=== PATIENT | male | born 1940 | race Caucasian/White ===

== ENCOUNTER 2016-11-14 18:38 | Inpatient (IN) | payer MEDICARE, MEDICAID ==
[~2016-11-14] VITALS: Ht 172.7 cm; Wt 64.8 kg
[2016-11-14 18:47] VITALS: Ht 172.7 cm; Wt 64.8 kg
[2016-11-14] MEDS ORDERED: SOD CHLORIDE 0.9% 1,000 ML IV STA (18:56)
--- NOTE | 2016-11-14 19:34 | RADRPT ---
PROCEDURE: XR Chest AP portable CLINICAL INDICATION: Abdominal pain TECHNIQUE: An AP portable radiograph of the chest was submitted. COMPARISON: None. FINDINGS: Support Hardware: A tracheostomy tube is satisfactorily position. Cardiovascular: The heart is not enlarged of the aorta appears tortuous and the pulmonary vasculatur e is unremarkable. Lung Hedrick: And alveolar infiltrate is seen at the base of the right upper lobe and also within the lower lung zones bilaterally. Pleural Spaces: No pneumothorax or pleural effusion is identified. Osseous Structures: Moderate diffuse degenerative spine changes are noted and the osseous elements a re rarefied. Soft Tissues: The soft tissues appear unremarkable. IMPRESSION: 1. The tracheostomy tube is satisfactory position. 2. Aortic tortuosity. 3. Focal infiltrates involving the inferior right upper lobe and both lung bases. No effusion is e vident. Physician Betsy Date Time Electronically viewed and signed by Physician Betsy on 11/14/2016 19:34 /
[2016-11-14 19:46] LABS: ADD SCAN DIFF NO
[2016-11-14 19:48] LABS: BASOPHILS % 0.2 % (0.0-2.0); EOSINOPHILS # 0.1 10^3/ul (0.0-0.5); EOSINOPHILS % 0.5 % (0.0-7.0); HEMATOCRIT 31.6 % (42.0-52.0); HEMOGLOBIN 10.1 g/dl (14.0-18.0); LYMPHOCYTES % 6.5 % (15.0-51.0); MEAN CORPUSCULAR HEMOGLOBIN 28.5 pg (29.0-33.0); MONOCYTE # 0.6 10^3/ul (0.3-0.9); MONOCYTES % 4.1 % (0.0-11.0); NEUTROPHIL # 13.6 10^3/ul (1.6-7.5); NEUTROPHILS % 88.1 % (39.0-77.0); PLATELET COUNT 483 10^3/UL (140-415); RED BLOOD COUNT 3.55 10^6/ul (4.70-6.10); RED CELL DISTRIBUTION WIDTH 14.5 % (11.5-14.5); WHITE BLOOD COUNT 15.5 10^3/ul (4.8-10.8)
[2016-11-14] MEDS ORDERED: CARB1TAB3 GTB (19:58)
[2016-11-14] MEDS ORDERED: ASPI81TA3 GTB (19:58)
[2016-11-14 20:00] LABS: INR 1.23; PROTIME 15.6 Sec (12.2-14.2); PT RATIO 1.2
[2016-11-14] MEDS ORDERED: METO-448 GTB (20:00)
[2016-11-14] MEDS ORDERED: VANCOMYCIN 1 GM (PMX) 250 ML IVPB SCH (20:00)
[2016-11-14] MEDS ORDERED: SOD CHLORIDE 0.9% 2,000 ML IV ONE (20:00)
[2016-11-14] MEDS ORDERED: CEFEPIME 1GM/50 ML (PMX) 50 ML IVPB ONE (20:00)
[2016-11-14] MEDS ORDERED: ZINC220T GTB (20:02)
[2016-11-14 20:03] LABS: CHLORIDE 99 mmol/L (97-110); SODIUM 139 mmol/L (135-144)
[2016-11-14 20:04] LABS: POTASSIUM 3.8 mmol/L (3.5-5.1)
[2016-11-14] MEDS ORDERED: VIT500LI GTB (20:05)
[2016-11-14 20:06] LABS: ALANINE AMINOTRANSFERASE 38 IU/L (13-69); ALBUMIN/GLOBULIN RATIO 0.83; ALKALINE PHOSPHATASE 188 IU/L (42-121); ANION GAP 17 (8-16); ASPARTATE AMINO TRANSFERASE 42 IU/L (15-46); BILIRUBIN,INDIRECT 0.1 mg/dl (0-1.1); BILIRUBIN,TOTAL 0.1 mg/dl (0.2-1.3); BLOOD UREA NITROGEN 31 mg/dl (7-20); CALCIUM 8.8 mg/dl (8.4-10.2); CARBON DIOXIDE 27 mmol/L (21-31); CREATININE 0.35 mg/dl (0.61-1.24); GLUCOSE 107 mg/dl (70-220); TOTAL PROTEIN 6.6 g/dl (6.1-8.1)
--- NOTE | 2016-11-14 20:06 | ERA ---
ER Documentation Chief Complaint Date/Time DATE: 11/14/16 TIME: 19:53 Chief Complaint FEVER,HIGH WBC FROM [facility],TRACH TO AEROSOL HPI 75-year-old man brought in by EMS from skilled nursing for fever 1 day. Patient has chronic encephalopathy is nonverbal and read spontaneously through the tracheostomy. He has had no vomiting or diarrhea. HPI was supplemented by reviewing past medical history skilled nursing records, as well as speaking to EMS. ROS All systems reviewed and are negative except as per history of present illness. Medications Home Meds Reported Medications Acetaminophen* (Acetaminophen*) 325 Mg Tablet, 650 MG GTB Q4H Y for MILD PAIN LEVEL 1-3, #30 TAB 11/14/16 Vit C-Ascorbate Ca-Ascorb Sod (Vitamin C) 500 Mg/15 Ml Liquid, 500 MG GTB DAILY , ML 11/14/16 Zinc Sulfate* (Zinc Sulfate*) 220 Mg Tablet, 220 MG GTB DAILY, TAB 11/14/16 Metoprolol Tartrate* (Lopressor*) 25 Mg Tab, 25 MG GTB BID, #60 TAB HOLD IF SBP<110 OR HR<60 11/14/16 Aspirin* (Aspirin* Chew) 81 Mg Tab.chew, 81 MG GTB DAILY, TAB.CHEW 11/14/16 Carbidopa/Levodopa (Sinemet 25-250 mg Tablet) 1 Each Tablet, 1 EACH GTB TID, TAB 11/14/16 Allergies Allergies: Coded Allergies: No Known Allergy (Unverified , 11/14/16) PMhx/Soc Chronic encephalopathy, tracheostomy placement breathing spontaneously, hypertension, COPD, dysphagia with gastrostomy tube, parkinsonism, 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 Afebrile. HEENT: Dry mucous membranes, pink conjunctiva, no cervical spine tenderness or step-off deformity, tracheostomy in place NEURO: Eyes closed, unresponsive, bilateral upper and lower extremity contractures CARDIAC: Regular rate and rhythm, no murmurs rubs or gallops LUNGS: Poor breath sounds bilaterally, crackles at the bases ABDOMEN: Soft nontender, no guarding, no rigidity, no rebound, no psoas sign no obturator sign. Normoactive bowel sounds SKIN: Warm and dry to touch, no abrasions, contusions, or hematomas, no lacerations, no ecchymosis, no target lesions, and without ulcers EXTREMITIES: No clubbing cyanosis or edema, calves are bilaterally symmetrical, no Homans sign, no popliteal cord sign. Distal pulses equal and bilateral PSYCH: Unable to assess Result Diagram: 11/14/16192911/14/161931 Results 24 hrs Laboratory Tests Test 11/14/16 19:30 11/14/16 19:32 Basophils # 0.010^3/ul Basophils % 0.2% Eosinophils # 0.110^3/ul Eosinophils % 0.5% Hematocrit 31.6% Hemoglobin 10.1g/dl Lactic Acid Level 1.6mmol/L Lymphocytes # 1.010^3/ul Lymphocytes % 6.5% Mean Corpuscular Hemoglobin 28.5pg Mean Corpuscular Hemoglobin Concent 32.0g/dl Mean Corpuscular Volume 89.0fl Mean Platelet Volume 10.0fl Monocytes # 0.610^3/ul Monocytes % 4.1% Neutrophils # 13.610^3/ul Neutrophils % 88.1% Nucleated Red Blood Cells # 0.010^3/ul Nucleated Red Blood Cells % 0.0/100WBC Platelet Count 64089^3/UL Red Blood Count 3.5510^6/ul Red Cell Distribution Width 14.5% White Blood Count 15.510^3/ul Alanine Aminotransferase (ALT/SGPT) 38IU/L Albumin 3.0g/dl Albumin/Globulin Ratio 0.83 Alkaline Phosphatase 188IU/L Anion Gap 17 Aspartate Amino Transf (AST/SGOT) 42IU/L Blood Urea Nitrogen 31mg/dl Calcium Level 8.8mg/dl Carbon Dioxide Level 27mmol/L Chloride Level 99mmol/L Creatinine 0.35mg/dl Direct Bilirubin 0.00mg/dl Globulin 3.60g/dl Glucose Level 107mg/dl INR International Normalized Ratio 1.23 Indirect Bilirubin 0.1mg/dl Lipase 94U/L Potassium Level 3.8mmol/L Prothrombin Time 15.6Sec Prothrombin Time Ratio 1.2 Sodium Level 139mmol/L Total Bilirubin 0.1mg/dl Total Protein 6.6g/dl Troponin I < 0.010ng/ml Current Medications Medications (Trade) Dose Ordered Sig/Codi Route PRN Reason Start Time Stop Time Status Last Admin Dose Admin Sodium Chloride 1,000 ml @ 1,000 mls/hr Q1H STAT IV 11/14/16 18:56 11/14/16 19:55 DC 11/14/16 20:21 Cefepime HCl 50 ml @ 100 mls/hr ONCE ONCE IVPB 11/14/16 20:00 11/14/16 20:29 11/14/16 20:21 Vancomycin HCl 250 ml @ 125 mls/hr ONCE IVPB 11/14/16 20:00 11/14/16 21:59 Sodium Chloride (NS) 2,000 ml @ 2,000 mls/hr Q1H ONCE IV 11/14/16 20:00 11/14/16 20:59 Procedures/MDM IV line was established patient was placed on playground monitor rhythm strip revealed a sinus rhythm at about 80 bpm with upright P and T waves. Blood and urine cultures have been ordered results are pending I will follow-up. I administered about 3 L normal saline intravenously for suspected sepsis and dehydration. One view chest x-ray performed, read by me revealed bilateral lower pulmonary infiltrates and a right upper lobe mass versus infiltrate. Tracheostomy is in place. No pneumothorax or end of the diaphragm. I administered cefepime 1 g IV and vancomycin 1 g IV for sepsis and bilateral healthcare associated pneumonia. CBC revealed leukocytosis at 16, electrolytes revealed dehydration with an increased BUN/creatinine ratio of 31/0.4, liver function tests are normal, troponin was negative. Urinalysis has also been ordered results are pending I will follow-up. Patient's infectious symptoms have not stabilized and the patient is at risk of rapid decompensation. The patient will be admitted for careful hydration, antibiotic therapy, and infectious source control. Severe Sepsis Assessment: Infectious Source: Bilateral pneumonia Severe Sepsis Managment: Blood Cultures X 2 before broad spectrum antibiotics initiated within 3 hours of recognition. 30 ml/kg NS bolus Completed Initial Lactate: 1.6 Repeat Lactate pending Critical Care: Time: 37 minutes Treatments/Evaluations: Emergent fluid management, while maintaining close respiratory support. Immediate broad spectrum antibiotic therapy. Simultaneous assessment for possible sources in order to direct therapy. Consideration for invasive and chemical support to prevent respiratory or cardiac collapse. Septic Shock Assessment (1 hour post 30 ml/kg fluid bolus): Hypotension (SBP < 90 or 40 mmHg drop, MAP < 65): No Lactic acid > 4.0 No Perfusion Reassessment for Septic Shock: Temp afebrile, Pulse 86, RR 18, BP 140/80 Heart Exam: Regular rate and rhythm Lung Exam: Bibasilar Capillary Refill: Less than 2 second Peripheral Pulses: Radially present Skin: [place] and warm Hypotensive Treatment (not required for isolated lactic acid elevation): Comfort Care: No Central LIne: Not indicated Vasopressor started: None I considered further perfusion assessment with CVP measurement, SCVO2, bedside ultrasound volume assessment, passive leg raise, trial of further fluid bolus. And preceded with IV hydration and broad-spectrum IV antibiotic Accepting Care Team: Current data and ongoing care discussed. Time: Time of admission Primary Provider: Hospital Consulting: Infectious disease and pulmonology Outstanding Data: none Departure Diagnosis: Primary Impression: Healthcare-associated pneumonia Additional Impressions: Sepsis Qualified Code: A41.9 - Sepsis, due to unspecified organism Dehydration Encephalopathy Condition: Serious WILLOW BECKER MD Nov 14, 2016 20:05
[2016-11-14] MEDS ORDERED: ACET325T45 GTB (20:07)
[2016-11-14 20:23] LABS: TROPONIN-I < 0.010 ng/ml (0.00-0.12)
[2016-11-14 21:52] LABS: ADD UMIC YES; URINE BILIRUBIN (Dip) NEGATIVE (NEGATIVE); URINE BLOOD (Dip) 3+ (NEGATIVE); URINE COLOR YELLOW (YELLOW); URINE GLUCOSE (Dip) NEGATIVE (NEGATIVE); URINE KETONES (Dip) NEGATIVE (NEGATIVE); URINE LEUKOCYTE ESTERASE (Dip) 1+ (NEGATIVE); URINE NITRITE (Dip) NEGATIVE (NEGATIVE); URINE TOTAL PROTEIN (Dip) 1+ (NEGATIVE); URINE UROBILINOGEN (Dip) 1.0 E.U./dL (0.1-1.0)
[2016-11-14 22:04] LABS: URINE RBCS >50 /HPF (0)
[2016-11-14 22:05] LABS: BACTERIA,URINE FEW; SQUAMOUS EPITHELIAL CELL,UR FEW
[2016-11-15] VITALS (11 sets, daily range): BP systolic 113–121; BP diastolic 60–65; PULSE 86–97; RESP 18–19; TEMP 98.4
[2016-11-15] MEDS ORDERED: ALBUTEROL/IPRATROPIUM (NEB) 3 ML AMP HHN PRN (05:00)
[2016-11-15] MEDS ORDERED: ONDANSETRON 4 MG INJ IV PRN (05:00)
[2016-11-15] MEDS ORDERED: VANCOMYCIN IV PER PHARMACY XX SCH (05:00)
[2016-11-15 07:00] LABS: ADD SCAN DIFF NO
[2016-11-15 07:08] LABS: BASOPHILS % 0.2 % (0.0-2.0); EOSINOPHILS # 0.1 10^3/ul (0.0-0.5); EOSINOPHILS % 0.5 % (0.0-7.0); HEMATOCRIT 26.6 % (42.0-52.0); HEMOGLOBIN 8.5 g/dl (14.0-18.0); LYMPHOCYTES # 0.9 10^3/ul (0.8-2.9); LYMPHOCYTES % 7.9 % (15.0-51.0); MEAN CORPUSCULAR HEMOGLOBIN 28.1 pg (29.0-33.0); MEAN CORPUSCULAR VOLUME 88.1 fl (82.0-101.0); MEAN PLATELET VOLUME 10.4 fl (7.4-10.4); MONOCYTE # 0.7 10^3/ul (0.3-0.9); NEUTROPHILS % 84.7 % (39.0-77.0); PLATELET COUNT 437 10^3/UL (140-415); RED BLOOD COUNT 3.02 10^6/ul (4.70-6.10); RED CELL DISTRIBUTION WIDTH 14.4 % (11.5-14.5); WHITE BLOOD COUNT 11.8 10^3/ul (4.8-10.8)
[2016-11-15 07:16] LABS: ALBUMIN 2.5 g/dl (3.3-4.9); POTASSIUM 3.5 mmol/L (3.5-5.1)
[2016-11-15 07:18] LABS: ALBUMIN/GLOBULIN RATIO 0.6
[2016-11-15 07:33] LABS: BILIRUBIN,INDIRECT 0.1 mg/dl (0-1.1); BILIRUBIN,TOTAL 0.1 mg/dl (0.2-1.3); CALCIUM 8.1 mg/dl (8.4-10.2); CREATININE 0.39 mg/dl (0.61-1.24); TOTAL PROTEIN 6.6 g/dl (6.1-8.1)
--- NOTE | 2016-11-15 08:33 | HP ---
DATE OF ADMISSION: 11/14/2016 TIME SEEN: 2300 CHIEF COMPLAINT: Sent from [facility] for leukocytosis and fever. HISTORY OF PRESENT ILLNESS: The patient is a 75-year-old male with a history of chronic encephalopat hy who is nonverbal. Status post trach, history of Parkinson disease, cardiac arrest, dyslipidemia, COPD, dysphagia status post G-tube, diabetes, multiple pressure ulcers and history of sepsis who [facility] leuk[facility] and fever. The patient was nonve rbal and has chronic encephalopathy, and as such, information is gathered from chart review and from the ER physician. This is the patient's first visit to this hospital. When he presented to the ER, blood pressure was 111/60, heart rate 70, respiratory rate 18, temperat ure 97.8, oxygen saturation 98%. Laboratory value shows a WBC of 15.5, hemoglobin 10.1, platelet co unt 43, BUN 31 with a normal creatinine of 0.35, alkaline phosphatase 188, albumin 3. Otherwise, th e rest of his CBC and CMP are within acceptable range. Chest x-ray shows no focal infiltrate involv ing the inferior right upper lobe and both lung bases. The patient was given cefepime and vancomyci n, as well as IV fluid while he was in the ER and currently admitted to telemetry unit. REVIEW OF SYSTEMS: Unable to fully assess. PAST MEDICAL HISTORY: As per HPI. PAST SURGICAL HISTORY: G-tube placement and tracheostomy. SOCIAL HISTORY: Unknown. ALLERGIES: NO KNOWN DRUG ALLERGIES. MEDICATION: At the SNF, he was on Lopressor, Tylenol, aspirin, Sinemet, zinc sulfate and vitamin C. PHYSICAL EXAMINATION: VITAL SIGNS: Blood pressure 100/67, heart rate 80, respiratory rate 18, temperature 97.8, oxygen sa turation 97% on 3 liters C collar. GENERAL: The patient lying in bed in no acute distress, not oriented. HEENT: No obvious head deformity. Pupils are reactive to light. NECK: Tracheostomy tube in place. CARDIOVASCULAR: Tachycardic with regular rhythm. LUNGS: Decreased breath sounds at the bases anteriorly. ABDOMEN: Soft. There is a G-tube in place. Nondistended. No grimaces noted on palpation. EXTREMITIES: No edema. LABORATORY: Pertinent positives as mentioned in the HPI. IMAGING: Chest x-ray results as mentioned in the HPI. IMPRESSION: 1. Sepsis as evidenced by leukocytosis and tachycardia, secondary to pneumonia. 2. Healthcare-associated pneumonia. 3. Chronic trach dependent respiratory failure. 4. Chronic encephalopathy. 5. History of Parkinson disease. 6. History of cardiac arrest. 7. History of chronic obstructive pulmonary disease. 8. History of multiple pressure ulcers. PLAN: He will be placed on antibiotic. We will follow up on blood culture and urine culture, and w ill send tracheal aspirate for Gram stain and culture as well. We are going to continue trach suppo rt. He will receive breathing treatments as needed. We will place a pulmonary consult. Will varghese nue tube feeding through his G-tube 7. We will continue his home medication with adjustment as needed. Further workup will be per clinical course. Dictated By: ELIZABETH ESPINAL/KINGSLEY Conf#: [id number] DID#: [id number]
[2016-11-15] MEDS: CEFEPIME 1GM/50 ML (PMX) 50 ML IVPB SCH ×2 (08:45→21:35)
[2016-11-15] MEDS: HEPARIN 5,000 UNIT/0.5 ML SYG SC SCH ×2 (08:48→21:00)
[2016-11-15] MEDS: VANCOMYCIN 750 MG in SOD CHLORIDE 0.9% 150 ML IVPB SCH ×2 (11:09→23:00)
[2016-11-15] MEDS ORDERED: VANCOMYCIN 1.5 GM in SOD CHLORIDE 0.9% 250 ML IVPB SCH (12:00)
--- NOTE | 2016-11-15 13:07 | CONS ---
Date/Time of Note Date/Time of Note DATE: 11/15/16 TIME: 13:03 Assessment/Plan Assessment/Plan Additional Assessment/Plan Chest x-ray was reviewed from yesterday which is showing patchy infiltrates in the left lower lobe as well as right middle and lower lobes. Assessment recommendations; 1. Patient admitted with sepsis and pneumonia due to bilateral pneumonia. Possibly aspiration. 2. Chronic respiratory failure, patient maintained on T piece. 3. History of severe Parkinson's disease. 4. History of severe anoxic encephalopathy. Continue current treatment. I did have a very detailed discussion the patient' s sister at bedside and answered all her questions. The patient is a DNR. Consultation Date/Type/Reason Admit Date/Time Nov 14, 2016 at 20:09 Date of Consultation: Nov 15, 2016 Type of Consultation: Pulmonary Reason for Consultation Pulmonary consultation obtained for evaluation of respiratory failure and management of pneumonia. History of present illness; patient is 75-year-old white male who was [facility] complaints of hypoxemia and hypotension. Upon evaluation chest x-ray was done which is showing bilateral patchy pneumonia. Patient has been started on antibiotic coverage. Patient does have a history of severe anoxic enthesopathy and is unable to give any history whatsoever. History was obtained from medical records as well as from the patient's sister who is present in the room. According to her the patient had a choking episode sometime back in July of last year and prior to that he was doing well after that the patient has had a very stormy course with severe anoxic encephalopathy. He is status post tracheostomy and PEG tube placement. Past medical history; 1. History of chronic respiratory failure patient maintained on T piece. 2. History of severe Parkinson's disease. 3. History of cardiac arrest in July of last year from a choking episode while the patient was eating steak at home 4. Status post tracheostomy and G-tube placement. Medications; were reviewed. Allergies; none. Social history; patient is most of any smoking, alcohol or drug abuse. Family history; patient is single he only has 2 sisters. No children. Occupational history; patient was a salesman. Review of systems; currently unable to be obtained. General examination; elderly male, appears quite emaciated. On T piece via tracheostomy. Does not appear to be in any distress. Social History Smoking Status: Unknown if ever smoked Exam/Review of Systems Vital Signs Vitals Vital Signs Date Time Temp Pulse Resp B/P Pulse Ox O2 Delivery O2 Flow Rate FiO2 11/15/16 12:18 89 11/15/16 11:20 20 98 Aerosol 5.0 28 11/15/16 11:04 97.3 121/60 Intake and Output 11/14/16 11/14/16 11/15/16 15:00 23:00 07:00 Intake Total 1000 ml Balance 1000 ml Exam HEENT examination; no JVD. Tracheostomy in place with clean insertion site. Patient has fair dentition. Patient enjoys difficult to obtain due to stiffness. Pupils are small bilaterally. No neck masses. Neck is difficult to flex. Chest examination; diminished but clear breath sounds bilaterally. S1-S2 audible, no murmurs. Regular rhythm. Abdomen examination; soft, scaphoid, G-tube in place. Bowel sounds audible. No organomegaly. Extremity examination; no peripheral edema. Patient has severe contractures involving all 4 extremities. US CUSTOMS AND BORDER OFFICER examination; patient remains completely unresponsive. Results Result Diagram: 11/15/16 0600 11/15/16 0600 Results 24 hrs Laboratory Tests Test 11/14/16 19:30 11/14/16 19:32 11/14/16 20:50 11/14/16 21:34 Basophils # 0.0 Basophils % 0.2 Eosinophils # 0.1 Eosinophils % 0.5 Hematocrit 31.6 L Hemoglobin 10.1 L Lactic Acid Level 1.6 1.6 Lymphocytes # 1.0 Lymphocytes % 6.5 L Mean Corpuscular Hemoglobin 28.5 L Mean Corpuscular Hemoglobin Concent 32.0 Mean Corpuscular Volume 89.0 Mean Platelet Volume 10.0 Monocytes # 0.6 Monocytes % 4.1 Neutrophils # 13.6 H Neutrophils % 88.1 H Nucleated Red Blood Cells # 0.0 Nucleated Red Blood Cells % 0.0 Platelet Count 483 H Red Blood Count 3.55 L Red Cell Distribution Width 14.5 White Blood Count 15.5 H Alanine Aminotransferase (ALT/SGPT) 38 Albumin 3.0 L Albumin/Globulin Ratio 0.83 Alkaline Phosphatase 188 H Anion Gap 17 H Aspartate Amino Transf (AST/SGOT) 42 Blood Urea Nitrogen 31 H Calcium Level 8.8 Carbon Dioxide Level 27 Chloride Level 99 Creatinine 0.35 L Direct Bilirubin 0.00 Globulin 3.60 H Glucose Level 107 INR International Normalized Ratio 1.23 Indirect Bilirubin 0.1 Lipase 94 Potassium Level 3.8 Prothrombin Time 15.6 H Prothrombin Time Ratio 1.2 Sodium Level 139 Total Bilirubin 0.1 L Total Protein 6.6 Troponin I < 0.010 Urine Bacteria FEW Urine Bilirubin NEGATIVE Urine Clarity SL HAZY Urine Color YELLOW Urine Glucose NEGATIVE Urine Hemoglobin 3+ H Urine Ketones NEGATIVE Urine Leukocyte Esterase 1+ H Urine Microscopic RBC >50 Urine Microscopic WBC 5-10 Urine Nitrite NEGATIVE Urine Specific [place] 1.015 Urine Squamous Epithelial Cells FEW Urine Total Protein 1+ H Urine Urobilinogen 1.0 E.U./dL Urine pH 7.0 Test 11/14/16 23:31 11/15/16 06:00 Lactic Acid Level 1.4 Alanine Aminotransferase (ALT/SGPT) 75 H Albumin 2.5 L Albumin/Globulin Ratio 0.60 Alkaline Phosphatase 156 H Anion Gap 16 Aspartate Amino Transf (AST/SGOT) 34 Basophils # 0.0 Basophils % 0.2 Blood Urea Nitrogen 24 H Calcium Level 8.1 L Carbon Dioxide Level 24 Chloride Level 105 Creatinine 0.39 L Direct Bilirubin 0.00 Eosinophils # 0.1 Eosinophils % 0.5 Globulin 4.10 H Glucose Level 85 Hematocrit 26.6 L Hemoglobin 8.5 L Indirect Bilirubin 0.1 Lymphocytes # 0.9 Lymphocytes % 7.9 L Mean Corpuscular Hemoglobin 28.1 L Mean Corpuscular Hemoglobin Concent 32.0 Mean Corpuscular Volume 88.1 Mean Platelet Volume 10.4 Monocytes # 0.7 Monocytes % 6.0 Neutrophils # 10.0 H Neutrophils % 84.7 H Nucleated Red Blood Cells # 0.0 Nucleated Red Blood Cells % 0.0 Platelet Count 437 H Potassium Level 3.5 Red Blood Count 3.02 L Red Cell Distribution Width 14.4 Sodium Level 141 Total Bilirubin 0.1 L Total Protein 6.6 White Blood Count 11.8 #H Medications Medications Current Medications Cefepime HCl (Maxipime 1gm/50 ml (Pmx)) 50 ml @ 100 mls/hr Q12 IVPB Last administered on 11/15/16t 08:45; Admin Dose 100 MLS/HR; Start 11/15/16 at 09:00 Ondansetron HCl (Zofran Inj) 4 mg Q6H PRN IV NAUSEA AND/OR VOMITING; Start at 05:00 Heparin Sodium (Porcine) 5000 unit 5,000 unit BID SC Last administered on 08:48; Admin Dose 5,000 UNIT; Start 11/15/16 at 09:00 Vancomycin HCl/ Sodium Chloride (Vancocin/NS) 150 ml @ 75 mls/hr Q12H IVPB Last administered on 11/15/16 11:09; Admin Dose 75 MLS/HR; Start 11/15/16 at 11 :00 DANIEL WOOD Nov 15, 2016 13:07
--- NOTE | 2016-11-15 16:39 | PN ---
Date/Time of Note Date/Time of Note DATE: 11/15/16 TIME: 16:34 Assessment/Plan VTE Prophylaxis VTE Prophylaxis Intervention: heparin (radiate yesterday rectal) Lines/Catheters IV Catheter Type (from Rust): Peripheral IV Urinary Cath still in place: Yes Assessment/Plan Chief Complaint/Hosp Course Assessment and plan 1. Sepsis secondary to pneumonia. Continue antibiotics. Continue with bronchodilators as needed. 2. Chronic respiratory failure. Patient trach dependent. Automotive Electrician Helper consulted. Continue recommendations 3. History of chronic encephalopathy. Continue aspiration precautions 4. History of Parkinson's disease.continue on antiparkinsonian medications 5. History of pressure ulcers. We'll get wound care consultation 6. History of cardiac arrest. Continue on beta deny and antiplatelet Disposition and plan: Await for clinical improvement of pneumonia. Continue inpatient monitoring. Discussed but of care with Dr. Granados Problems: Subjective 24 Hr Interval Summary Free Text/Dictation Resting at this time. Nonverbal. Exam/Review of Systems Vital Signs Vitals Vital Signs Date Time Temp Pulse Resp B/P Pulse Ox O2 Delivery O2 Flow Rate FiO2 11/15/16 16:19 91 11/15/16 15:15 97.6 19 116/65 95 11/15/16 11:20 Aerosol 5.0 28 Intake and Output 11/14/16 11/14/16 11/15/16 14:59 22:59 06:59 Intake Total 1000 ml Balance 1000 ml Exam General: No acute signs or symptoms of distress Eyes: pupils equal round, Anicteric sclera Neck: Tracheostomy in place Cardiac: S1, S2 auscultated, regular rhythm and rate Pulmonary: Rhonchi auscultated bilaterally GI: G tube in place Extremities: No edema bilateral lower extremities Skin: Decubitus ulcer Neurologic: Alert. Nonverbal Results Result Diagram: 11/15/16 0600 11/15/16 0600 Results 24 hrs Laboratory Tests Test 11/14/16 19:30 11/14/16 19:32 11/14/16 20:50 11/14/16 21:34 Basophils # 0.0 Basophils % 0.2 Eosinophils # 0.1 Eosinophils % 0.5 Hematocrit 31.6 L Hemoglobin 10.1 L Lactic Acid Level 1.6 1.6 Lymphocytes # 1.0 Lymphocytes % 6.5 L Mean Corpuscular Hemoglobin 28.5 L Mean Corpuscular Hemoglobin Concent 32.0 Mean Corpuscular Volume 89.0 Mean Platelet Volume 10.0 Monocytes # 0.6 Monocytes % 4.1 Neutrophils # 13.6 H Neutrophils % 88.1 H Nucleated Red Blood Cells # 0.0 Nucleated Red Blood Cells % 0.0 Platelet Count 483 H Red Blood Count 3.55 L Red Cell Distribution Width 14.5 White Blood Count 15.5 H Alanine Aminotransferase (ALT/SGPT) 38 Albumin 3.0 L Albumin/Globulin Ratio 0.83 Alkaline Phosphatase 188 H Anion Gap 17 H Aspartate Amino Transf (AST/SGOT) 42 Blood Urea Nitrogen 31 H Calcium Level 8.8 Carbon Dioxide Level 27 Chloride Level 99 Creatinine 0.35 L Direct Bilirubin 0.00 Globulin 3.60 H Glucose Level 107 INR International Normalized Ratio 1.23 Indirect Bilirubin 0.1 Lipase 94 Potassium Level 3.8 Prothrombin Time 15.6 H Prothrombin Time Ratio 1.2 Sodium Level 139 Total Bilirubin 0.1 L Total Protein 6.6 Troponin I < 0.010 Urine Bacteria FEW Urine Bilirubin NEGATIVE Urine Clarity SL HAZY Urine Color YELLOW Urine Glucose NEGATIVE Urine Hemoglobin 3+ H Urine Ketones NEGATIVE Urine Leukocyte Esterase 1+ H Urine Microscopic RBC >50 Urine Microscopic WBC 5-10 Urine Nitrite NEGATIVE Urine Specific [place] 1.015 Urine Squamous Epithelial Cells FEW Urine Total Protein 1+ H Urine Urobilinogen 1.0 E.U./dL Urine pH 7.0 Test 11/14/16 23:31 11/15/16 06:00 Lactic Acid Level 1.4 Alanine Aminotransferase (ALT/SGPT) 75 H Albumin 2.5 L Albumin/Globulin Ratio 0.60 Alkaline Phosphatase 156 H Anion Gap 16 Aspartate Amino Transf (AST/SGOT) 34 Basophils # 0.0 Basophils % 0.2 Blood Urea Nitrogen 24 H Calcium Level 8.1 L Carbon Dioxide Level 24 Chloride Level 105 Creatinine 0.39 L Direct Bilirubin 0.00 Eosinophils # 0.1 Eosinophils % 0.5 Globulin 4.10 H Glucose Level 85 Hematocrit 26.6 L Hemoglobin 8.5 L Indirect Bilirubin 0.1 Lymphocytes # 0.9 Lymphocytes % 7.9 L Mean Corpuscular Hemoglobin 28.1 L Mean Corpuscular Hemoglobin Concent 32.0 Mean Corpuscular Volume 88.1 Mean Platelet Volume 10.4 Monocytes # 0.7 Monocytes % 6.0 Neutrophils # 10.0 H Neutrophils % 84.7 H Nucleated Red Blood Cells # 0.0 Nucleated Red Blood Cells % 0.0 Platelet Count 437 H Potassium Level 3.5 Red Blood Count 3.02 L Red Cell Distribution Width 14.4 Sodium Level 141 Total Bilirubin 0.1 L Total Protein 6.6 White Blood Count 11.8 #H Medications Medications Current Medications Cefepime HCl (Maxipime 1gm/50 ml (Pmx)) 50 ml @ 100 mls/hr Q12 IVPB Last administered on 11/15/16 08:45; Admin Dose 100 MLS/HR; Start 11/15/16 at 09:00 Ondansetron HCl (Zofran Inj) 4 mg Q6H PRN IV NAUSEA AND/OR VOMITING; Start at 05:00 Heparin Sodium (Porcine) 5000 unit 5,000 unit BID SC Last administered on 08:48; Admin Dose 5,000 UNIT; Start 11/15/16 at 09:00 Vancomycin HCl/ Sodium Chloride (Vancocin/NS) 150 ml @ 75 mls/hr Q12H IVPB Last administered on 11/15/16 11:09; Admin Dose 75 MLS/HR; Start 11/15/16 at 11 :00 JOSELIN JANG Nov 15, 2016 16:39
[2016-11-15] MEDS ORDERED: ACETAMINOPHEN 650MG/20.3ML CUP GTB PRN (17:00)
[2016-11-15] MEDS: ASCORBIC ACID 500 MG TAB PO SCH (17:19)
[2016-11-15] MEDS: CARBIDOPA/LEVODOPA (25/250) TAB GTB SCH (21:34)
[2016-11-15] MEDS: METOPROLOL 25 MG TAB GTB SCH (21:34)
[2016-11-16] VITALS (12 sets, daily range): BP systolic 106–140; BP diastolic 56–70; PULSE 71–77; RESP 17–22
[2016-11-16] MEDS: ASCORBIC ACID 500 MG TAB PO SCH (08:50)
[2016-11-16] MEDS: ASPIRIN 81 MG TAB GTB SCH (08:50)
[2016-11-16] MEDS: ZINC SULFATE 220 MG CAP GTB SCH (08:50)
[2016-11-16] MEDS: CARBIDOPA/LEVODOPA (25/250) TAB GTB SCH ×3 (08:50→21:48)
[2016-11-16] MEDS: CEFEPIME 1GM/50 ML (PMX) 50 ML IVPB SCH ×2 (08:51→21:47)
[2016-11-16] MEDS: METOPROLOL 25 MG TAB GTB SCH ×2 (08:51→21:48)
[2016-11-16] MEDS: HEPARIN 5,000 UNIT/0.5 ML SYG SC SCH ×2 (09:07→21:00)
[2016-11-16] MEDS: VANCOMYCIN 750 MG in SOD CHLORIDE 0.9% 150 ML IVPB SCH ×2 (11:47→23:39)
--- NOTE | 2016-11-16 12:05 | CONS ---
Date/Time of Note Date/Time of Note DATE: 11/16/16 TIME: 12:02 Assessment/Plan Assessment/Plan Additional Assessment/Plan Assessment and recommendations; 1. Patient admitted with bilateral pneumonia and sepsis clinically improved. 2. History of severe anoxic encephalopathy due to a severe choking episode in July of last year into cardiopulmonary arrest. 3. History of severe Parkinson's disease. Continue current treatment. Consultation Date/Type/Reason Admit Date/Time Nov 14, 2016 at 20:09 Initial Consult Date 11/15/16 Type of Consultation: Pulmonary 24 HR Interval Summary Free Text/Dictation Patient condition remains stable. Has remained hemodynamically stable. Because of underlying encephalopathy patient is completely unresponsive. However maintaining O2 saturation on T piece. General examination; elderly male, on T-piece via tracheostomy. Unresponsive. Appears quite emaciated. Exam/Review of Systems Vital Signs Vitals Vital Signs Date Time Temp Pulse Resp B/P Pulse Ox O2 Delivery O2 Flow Rate FiO2 11/16/16 11:14 98.5 78 18 117/65 99 11/16/16 04:54 Aerosol 28 T Tube 11/16/16 04:54 5.0 Intake and Output 11/15/16 11/15/16 11/16/16 15:00 23:00 07:00 Intake Total 510 ml 1230 ml Output Total 600 ml 550 ml Balance -90 ml 680 ml Exam H EENT examination; tracheostomy in place with clean insertion site. Patient has generalized muscular rigidity therefore it is difficult to evaluate suppleness of the neck. He is edentulous. Pupils are midsize bilaterally. No neck masses. No thyromegaly. Chest examination; diminished but clear breath sounds bilaterally. S1-S2 audible, no murmurs. Regular rhythm. Abdomen examination; soft, G-tube in place. Bowel sounds audible. Abdomen is scaphoid. No organomegaly. Extremity examination; no peripheral edema. She does have contractures involving all 4 extremities as well as generalized muscular rigidity. RN PLACEMENT exam; patient remains unresponsive. Results Result Diagram: 11/15/16 0600 11/15/16 0600 Medications Medications Current Medications Cefepime HCl (Maxipime 1gm/50 ml (Pmx)) 50 ml @ 100 mls/hr Q12 IVPB Last administered on 11/16/16t 08:51; Admin Dose 100 MLS/HR; Start 11/15/16 at 09:00 Ondansetron HCl (Zofran Inj) 4 mg Q6H PRN IV NAUSEA AND/OR VOMITING; Start at 05:00 Heparin Sodium (Porcine) 5000 unit 5,000 unit BID SC Last administered on 09:07; Admin Dose 5,000 UNIT; Start 11/15/16 at 09:00 Vancomycin HCl/ Sodium Chloride (Vancocin/NS) 150 ml @ 75 mls/hr Q12H IVPB Last administered on 11/16/16 11:47; Admin Dose 75 MLS/HR; Start 11/15/16 at 11: 00 Acetaminophen (Tylenol Liquid) 650 mg Q4H PRN GTB MILD PAIN LEVEL 1-3; Start at 17:00 Aspirin (Aspirin) 81 mg DAILY GTB Last administered on 11/16/16 08:50; Admin Dose 81 MG; Start 11/16/16 at 09:00 Carbidopa/Levodopa (Sinemet (25/ 250)) 1 tab TID GTB Last administered on 08:50; Admin Dose 1 TAB; Start 11/15/16 at 21:00 Metoprolol Tartrate (Lopressor) 25 mg BID GTB Last administered on 11/16/16 08: 51; Admin Dose 25 MG; Start 11/15/16 at 21:00 Zinc Sulfate (Zinc Sulfate) 220 mg DAILY GTB Last administered on 11/16/16 08: 50; Admin Dose 220 MG; Start 11/16/16 at 09:00 Ascorbic Acid (Vitamin C) 500 mg DAILY PO Last administered on 11/16/16 08:50; Admin Dose 500 MG; Start 11/15/16 at 17:00 DANILE WOOD Nov 16, 2016 12:05
[2016-11-16 12:18] LABS: ADD SCAN DIFF NO
[2016-11-16 12:21] LABS: BASOPHILS % 0.2 % (0.0-2.0); EOSINOPHILS # 0.1 10^3/ul (0.0-0.5); EOSINOPHILS % 0.7 % (0.0-7.0); HEMATOCRIT 28.1 % (42.0-52.0); LYMPHOCYTES # 1.2 10^3/ul (0.8-2.9); LYMPHOCYTES % 9.5 % (15.0-51.0); MEAN CORPUSCULAR HEMOGLOBIN 28.4 pg (29.0-33.0); MEAN CORPUSCULAR VOLUME 88.6 fl (82.0-101.0); MEAN PLATELET VOLUME 10.2 fl (7.4-10.4); MONOCYTE # 0.8 10^3/ul (0.3-0.9); MONOCYTES % 6.5 % (0.0-11.0); NEUTROPHIL # 10.5 10^3/ul (1.6-7.5); NEUTROPHILS % 81.9 % (39.0-77.0); PLATELET COUNT 502 10^3/UL (140-415); RED BLOOD COUNT 3.17 10^6/ul (4.70-6.10); WHITE BLOOD COUNT 12.9 10^3/ul (4.8-10.8)
[2016-11-16 12:37] LABS: POTASSIUM 3.5 mmol/L (3.5-5.1)
[2016-11-16 12:39] LABS: CREATININE 0.35 mg/dl (0.61-1.24)
[2016-11-16 12:40] LABS: CALCIUM 8.3 mg/dl (8.4-10.2)
--- NOTE | 2016-11-16 16:12 | PN ---
Date/Time of Note Date/Time of Note DATE: 11/16/16 TIME: 16:10 Assessment/Plan VTE Prophylaxis VTE Prophylaxis Intervention: heparin Lines/Catheters IV C[facility]ter Type (from [facility] Urinary Cath still in place: Yes Assessment/Plan Chief Complaint/Hosp Course Assessment and plan 1. Sepsis secondary to pneumonia. Continue antibiotics. Continue with bronchodilators as needed. On O2. 2. Chronic respiratory failure. Patient trach dependent. Pastor following. Continue recommendations 3. History of chronic encephalopathy. Continue aspiration precautions 4. History of Parkinson's disease.continue on antiparkinsonian medications 5. History of pressure ulcers. Continue to turn every 2 hours. Continue with wound care 6. History of cardiac arrest. Continue on beta deny and antiplatelet Disposition and plan: Still noted with elevated white count. Continue on antibiotics. Discharge him medically stable and cleared by consultants Discussed but of care with Dr. Granados Problems: Subjective 24 Hr Interval Summary Free Text/Dictation Remains nonverbal. Does not follow commands. Family at bedside Exam/Review of Systems Vital Signs Vitals Vital Signs Date Time Temp Pulse Resp B/P Pulse Ox O2 Delivery O2 Flow Rate FiO2 11/16/16 15:02 98.3 87 22 116/56 96 11/16/16 13:12 5.0 11/16/16 04:54 Aerosol 28 T Tube Intake and Output 11/15/16 11/15/16 11/16/16 15:00 23:00 07:00 Intake Total 510 ml 1230 ml Output Total 600 ml 550 ml Balance -90 ml 680 ml Exam General: Frail and cachectic in appearance Eyes: pupils equal round, Anicteric sclera Neck: Tracheostomy in place Cardiac: Remains in regular rhythm and regular rate. S1-S2 auscultated Pulmonary: Minimally coarse bilaterally remains on t-piece o2 GI: Tube in place Extremities: Edema noted bilateral lower extremity is Skin: With multiple decubitus ulcers on sacral area Neurologic: Not alert and oriented Results Result Diagram: 11/16/16 1132 11/16/16 1132 Results 24 hrs Laboratory Tests Test 11/16/16 11:32 Anion Gap 13 Basophils # 0.0 Basophils % 0.2 Blood Urea Nitrogen 25 H Calcium Level 8.3 L Carbon Dioxide Level 26 Chloride Level 105 Creatinine 0.35 L Eosinophils # 0.1 Eosinophils % 0.7 Glucose Level 104 Hematocrit 28.1 L Hemoglobin 9.0 L Lymphocytes # 1.2 Lymphocytes % 9.5 L Mean Corpuscular Hemoglobin 28.4 L Mean Corpuscular Hemoglobin Concent 32.0 Mean Corpuscular Volume 88.6 Mean Platelet Volume 10.2 Monocytes # 0.8 Monocytes % 6.5 Neutrophils # 10.5 H Neutrophils % 81.9 H Nucleated Red Blood Cells # 0.0 Nucleated Red Blood Cells % 0.0 Platelet Count 502 H Potassium Level 3.5 Red Blood Count 3.17 L Red Cell Distribution Width 14.0 Sodium Level 140 White Blood Count 12.9 H Medications Medications Current Medications Cefepime HCl (Maxipime 1gm/50 ml (Pmx)) 50 ml @ 100 mls/hr Q12 IVPB Last administered on 11/16/16 08:51; Admin Dose 100 MLS/HR; Start 11/15/16 at 09:00 Ondansetron HCl (Zofran Inj) 4 mg Q6H PRN IV NAUSEA AND/OR VOMITING; Start at 05:00 Heparin Sodium (Porcine) 5000 unit 5,000 unit BID SC Last administered on 09:07; Admin Dose 5,000 UNIT; Start 11/15/16 at 09:00 Vancomycin HCl/ Sodium Chloride (Vancocin/NS) 150 ml @ 75 mls/hr Q12H IVPB Last administered on 11/16/16 11:47; Admin Dose 75 MLS/HR; Start 11/15/16 at 11: 00 Acetaminophen (Tylenol Liquid) 650 mg Q4H PRN GTB MILD PAIN LEVEL 1-3; Start at 17:00 Aspirin (Aspirin) 81 mg DAILY GTB Last administered on 11/16/16 08:50; Admin Dose 81 MG; Start 11/16/16 at 09:00 Carbidopa/Levodopa (Sinemet (25/ 250)) 1 tab TID GTB Last administered on 13:04; Admin Dose 1 TAB; Start 11/15/16 at 21:00 Metoprolol Tartrate (Lopressor) 25 mg BID GTB Last administered on 11/16/16 08: 51; Admin Dose 25 MG; Start 11/15/16 at 21:00 Zinc Sulfate (Zinc Sulfate) 220 mg DAILY GTB Last administered on 11/16/16 08: 50; Admin Dose 220 MG; Start 11/16/16 at 09:00 Ascorbic Acid (Vitamin C) 500 mg DAILY PO Last administered on 11/16/16 08:50; Admin Dose 500 MG; Start 11/15/16 at 17:00 JOSELIN JANG Nov 16, 2016 16:12
[2016-11-17] VITALS (10 sets, daily range): BP systolic 105–132; BP diastolic 59–75; PULSE 63–74; RESP 18–22
[2016-11-17 07:29] LABS: ADD SCAN DIFF NO
[2016-11-17 07:30] LABS: BASOPHIL # 0.1 10^3/ul (0.0-0.1); BASOPHILS % 0.5 % (0.0-2.0); EOSINOPHILS # 0.2 10^3/ul (0.0-0.5); EOSINOPHILS % 1.7 % (0.0-7.0); HEMATOCRIT 28.1 % (42.0-52.0); HEMOGLOBIN 9.1 g/dl (14.0-18.0); LYMPHOCYTES # 1.1 10^3/ul (0.8-2.9); LYMPHOCYTES % 10.3 % (15.0-51.0); MEAN CORPUSCULAR HEMOGLOBIN 28.4 pg (29.0-33.0); MEAN CORPUSCULAR HGB CONC 32.4 g/dl (32.0-37.0); MEAN CORPUSCULAR VOLUME 87.8 fl (82.0-101.0); MEAN PLATELET VOLUME 10.1 fl (7.4-10.4); MONOCYTE # 0.6 10^3/ul (0.3-0.9); MONOCYTES % 5.7 % (0.0-11.0); NEUTROPHIL # 8.7 10^3/ul (1.6-7.5); NEUTROPHILS % 79.5 % (39.0-77.0); PLATELET COUNT 517 10^3/UL (140-415); RED CELL DISTRIBUTION WIDTH 13.9 % (11.5-14.5); WHITE BLOOD COUNT 10.9 10^3/ul (4.8-10.8)
[2016-11-17 07:43] LABS: POTASSIUM 3.7 mmol/L (3.5-5.1)
[2016-11-17 07:46] LABS: CREATININE 0.36 mg/dl (0.61-1.24)
[2016-11-17 07:47] LABS: CALCIUM 8.2 mg/dl (8.4-10.2)
[2016-11-17] MEDS: CEFEPIME 1GM/50 ML (PMX) 50 ML IVPB SCH (09:21)
[2016-11-17] MEDS: ASPIRIN 81 MG TAB GTB SCH (09:22)
[2016-11-17] MEDS: ASCORBIC ACID 500 MG TAB PO SCH (09:22)
[2016-11-17] MEDS: ZINC SULFATE 220 MG CAP GTB SCH (09:22)
[2016-11-17] MEDS: CARBIDOPA/LEVODOPA (25/250) TAB GTB SCH ×2 (09:22→14:19)
[2016-11-17] MEDS: METOPROLOL 25 MG TAB GTB SCH (09:22)
[2016-11-17] MEDS: HEPARIN 5,000 UNIT/0.5 ML SYG SC SCH (09:28)
--- NOTE | 2016-11-17 09:53 | CONS ---
Date/Time of Note Date/Time of Note DATE: 11/17/16 TIME: 09:50 Assessment/Plan Assessment/Plan Additional Assessment/Plan Assessment recommendations; 1. Patient admitted with bilateral pneumonia with interval clinical improvement with improving leukocytosis. 2. History of anoxic encephalopathy of the patient suffered a choking episode on a piece of steak in July of last year. 3. Chronic respiratory failure, maintain on T piece. 4. Advanced Parkinson's disease. Continue current treatment for now patient can be transferred to the long-term with continuation of IV antibiotics for at least 1 more week. Consultation Date/Type/Reason Admit Date/Time Nov 14, 2016 at 20:09 Initial Consult Date 11/15/16 Type of Consultation: Pulmonary 24 HR Interval Summary Free Text/Dictation Patient condition is stable. Remains awake but unresponsive when to anoxic encephalopathy. Has remained hemodynamically stable. Maintaining adequate O2 saturation on tracheal T-piece on 28% cool aerosol. General examination; elderly male, on T piece via tracheostomy awake but unresponsive. Currently in no distress. Exam/Review of Systems Vital Signs Vitals Vital Signs Date Time Temp Pulse Resp B/P Pulse Ox O2 Delivery O2 Flow Rate FiO2 11/17/16 08:47 70 11/17/16 07:57 98.2 18 132/71 98 11/17/16 05:02 Aerosol 5.0 T Tube 11/16/16 22:31 28 Intake and Output 11/16/16 11/16/16 11/17/16 14:59 22:59 06:59 Intake Total 200 ml 920 ml Output Total 650 ml Balance 200 ml 270 ml Exam H EENT examination; supple neck, tracheostomy in place. Patient has multiple carious teeth. Pupils are small bilaterally. No neck masses. No lymphadenopathy no thyromegaly. Chest examination; diminished but clear breath sounds bilaterally. S1-S2 audible, no murmurs. Regular rhythm. Abdomen examination; soft, nondistended. G-tube in place. Bowel sounds audible. No organomegaly. Extremity examination; no peripheral edema. [employer] SUPER[employer]OR examination; patient is awake but does not follow any commands. Results Result Diagram: 11/17/16 0645 11/17/16 0645 Results 24 hrs Laboratory Tests Test 11/16/16 11:32 11/16/16 22:15 11/17/16 06:45 Anion Gap 13 14 Basophils # 0.0 0.1 Basophils % 0.2 0.5 Blood Urea Nitrogen 25 H 22 H Calcium Level 8.3 L 8.2 L Carbon Dioxide Level 26 28 Chloride Level 105 102 Creatinine 0.35 L 0.36 L Eosinophils # 0.1 0.2 Eosinophils % 0.7 1.7 Glucose Level 104 109 Hematocrit 28.1 L 28.1 L Hemoglobin 9.0 L 9.1 L Lymphocytes # 1.2 1.1 Lymphocytes % 9.5 L 10.3 L Mean Corpuscular Hemoglobin 28.4 L 28.4 L Mean Corpuscular Hemoglobin Concent 32.0 32.4 Mean Corpuscular Volume 88.6 87.8 Mean Platelet Volume 10.2 10.1 Monocytes # 0.8 0.6 Monocytes % 6.5 5.7 Neutrophils # 10.5 H 8.7 H Neutrophils % 81.9 H 79.5 H Nucleated Red Blood Cells # 0.0 0.0 Nucleated Red Blood Cells % 0.0 0.0 Platelet Count 502 H 517 H Potassium Level 3.5 3.7 Red Blood Count 3.17 L 3.20 L Red Cell Distribution Width 14.0 13.9 Sodium Level 140 140 White Blood Count 12.9 H 10.9 H Vancomycin Level Trough 6.2 L Medications Medications Current Medications Cefepime HCl (Maxipime 1gm/50 ml (Pmx)) 50 ml @ 100 mls/hr Q12 IVPB Last administered on 11/17/16 09:21; Admin Dose 100 MLS/HR; Start 11/15/16 at 09:00 Ondansetron HCl (Zofran Inj) 4 mg Q6H PRN IV NAUSEA AND/OR VOMITING; Start at 05:00 Heparin Sodium (Porcine) (Heparin (5000 Units/0.5 ml)) 5,000 unit BID SC Last administered on 11/17/16 09:28; Admin Dose 5,000 UNIT; Start 11/15/16 at 09:00 Acetaminophen (Tylenol Liquid) 650 mg Q4H PRN GTB MILD PAIN LEVEL 1-3; Start at 17:00 Aspirin (Aspirin) 81 mg DAILY GTB Last administered on 11/17/16 09:22; Admin Dose 81 MG; Start 11/16/16 at 09:00 Carbidopa/Levodopa (Sinemet (25/ 250)) 1 tab TID GTB Last administered on 09:22; Admin Dose 1 TAB; Start 11/15/16 at 21:00 Metoprolol Tartrate (Lopressor) 25 mg BID GTB Last administered on 11/17/16 09: 22; Admin Dose 25 MG; Start 11/15/16 at 21:00 Zinc Sulfate (Zinc Sulfate) 220 mg DAILY GTB Last administered on 11/17/16 09: ; Admin Dose 220 MG; Start 11/16/16 at 09:00 Ascorbic Acid 500 mg 500 mg DAILY PO Last administered on 11/17/16 09:22; Admin Dose 500 MG; Start 11/15/16 at 17:00 Vancomycin HCl/ Sodium Chloride (Vancocin/NS) 250 ml @ 83.333 mls/ hr Q12H IVPB ; Start 11/17/16 at 10:00 DANIEL WOOD Nov 17, 2016 09:53
[2016-11-17] MEDS ORDERED: VANCOMYCIN 1.25 GM in SOD CHLORIDE 0.9% 250 ML IVPB SCH (10:00)
[2016-11-17] MEDS ORDERED: PIPE2.254 IV (10:38)
[2016-11-17] MEDS ORDERED: Vancomycin Iv Per Pharmacy XX (10:38)
[2016-11-17] MEDS ORDERED: IPRA3AMP HHN (10:38)
[2016-11-17] MEDS ORDERED: HEP5KI SC (10:38)
--- NOTE | 2016-11-17 10:53 | PDOCDIS ---
Discharge Instructions DIAGNOSIS Discharge Diagnosis: 1. bilateral pneumonia 2. hx chronic respiratory failure with trach CONDITION Patient Condition: Stable HOME CARE INSTRUCTIONS: Special Diet: tube feedings FOLLOW UP/APPOINTMENTS Appointments 1. Patient to follow up with her primary care provider in a week OTHER ORDERS: Other Orders: 1. Further care and management per longterm facility JOSELIN JANG Nov 17, 2016 10:53
[2016-11-17] MEDS ORDERED: PIPER-TAZO 2.25 GM (PMX) 50 ML IVPB SCH (12:00)
== END 2016-11-17 19:45 | DRG 871 ==
LOC: E/R 18:38 → TEL 20:09
PROVIDERS: ADMIT Internal Medicine; ATTEND Internal Medicine
DX: A41.9 Sepsis, unspecified organism (principal); J18.9 Pneumonia, unspecified organism; G93.40 Encephalopathy, unspecified; G93.1 Anoxic brain damage, not elsewhere classified; J96.10 Chronic respiratory failure, unspecified whether with hypoxia or hypercapnia; Z93.0 Tracheostomy status; G20 Parkinson's disease; J44.9 Chronic obstructive pulmonary disease, unspecified; R13.10 Dysphagia, unspecified; Z93.1 Gastrostomy status; Z74.01 Bed confinement status; E86.0 Dehydration
CPT/HCPCS: 36415; 71010; 80048; 80053; 80202; 81001; 81003; 83605; 83690; 84484; 85025; 85610; 87040; 87070; 87086; 93005; 96361; 96374; 96375; J0692; J3370; J7030; J7050